=== PATIENT | female | born 1945 | race Caucasian/White ===

== ENCOUNTER 2019-11-07 09:26 | Emergency (ER) | payer MEDICARE ==
[2019-11-07] MEDS ORDERED: SODIUM CHLORIDE 0.9% 500 ML 500 ML IV STA (09:48)
[2019-11-07 09:49] LABS: Glucose,Whole Blood 87 mg/dL (75-99)
--- NOTE | 2019-11-07 09:56 | ED ---
General Adult HPI - General Chief complaint: Neuro Symptoms/Deficit Stated complaint: poss stroke Time Seen by Provider: 11/07/19 09:26 Source: patient, RN notes reviewed, old records reviewed Mode of arrival: wheelchair Limitations: no limitations - History of Present Illness Initial comments: This is a 74-year-old female who presents to the emergency department complaining of left facial droop. According to the family member the patient was last seen normal at 10 PM last night. Patient's family members stated this morning she had slurred speech as well as left-sided facial droop and now her speech and appears to be back to its baseline. Patient has had 2 previous strokes in the past. Patient denies any headache patient denies any recent il lness. Patient denies any fever chills per patient denies chest pain palpitations difficulty breathing shortness of breath. Patient denies any weakness in her extremities. Patient denies any abdominal pain. Patient denies any recent nausea vomiting diarrhea. - Related Data Home Medications Medication Instructions Recorded Confirmed Enalapril [Vasotec] 10 mg PO DAILY 07/07/14 11/07/19 Aspirin EC [Ecotrin Low Dose] 81 mg PO DAILY 11/07/19 11/07/19 Aspirin EC [Ecotrin] 325 mg PO ONCE PRN 11/07/19 11/07/19 Atorvastatin [Lipitor] 40 mg PO HS 11/07/19 11/07/19 Chlorthalidone [Hygroton] 25 mg PO DAILY PRN 11/07/19 11/07/19 Pantoprazole [Protonix] 40 mg PO HS 11/07/19 11/07/19 Ubidecarenone [Co Q-10] 100 mg PO DAILY 11/07/19 11/07/19 amLODIPine [Norvasc] 5 mg PO DAILY 11/07/19 11/07/19 Allergies Allergy/AdvReac Type Severity Reaction Status Date / Time adhesive AdvReac Unknown Verified 11/07/19 10:25 Review of Systems ROS Statement: Those systems with pertinent positive or pertinent negative responses have been documented in the HPI. ROS Other: All systems not noted in ROS Statement are negative. Past Medical History Past Medical History: Coronary Artery Disease (CAD), Cancer, GERD/Reflux, Hyperlipidemia, Hypertension Additional Past Medical History / Comment(s): CLL DX A YEAR AGO MAY, KIDNEY STONES, ARTHRITIS, FACIAL REDDNESS ? CAUSE History of Any Multi-Drug Resistant Organisms: None Reported Past Surgical History: Bladder Surgery, Cholecystectomy, Heart Catheterization With Stent, Hysterectomy Additional Past Surgical History / Comment(s): BLADDER SUSPENSION, Past Anesthesia/Blood Transfusion Reactions: No Reported Reaction Date of Last Stent Placement:: 2005 Past Psychological History: No Psychological Hx Reported Smoking Status: Current every day smoker - Past Family History Father Family Medical History: Dementia Additional Family Medical History / Comment(s): AGE 86 , ULCER Mother Family Medical History: Hypertension Additional Family Medical History / Comment(s): VASCULAR DX, BRAIN TUMOR, AGE 83 General Exam - General Exam Comments Initial Comments: GENERAL: Patient is well-developed and well-nourished. Patient is nontoxic and well- hydrated and is in mild distress. ENT: Neck is soft and supple. No significant lymphadenopathy is noted. Oropharynx is clear. Moist mucous membranes. Neck has full range of motion without eliciting any pain. EYES: The sclera were anicteric and conjunctiva were pink and moist. Extraocular movements were intact and pupils were equal round and reactive to light. Eyelids were unremarkable. PULMONARY: Unlabored respirations. Good breath sounds bilaterally. No audible rales rhonchi or wheezing was noted. CARDIOVASCULAR: There is a regular rate and rhythm without any murmurs gallops or rubs. ABDOMEN: Soft and nontender with normal bowel sounds. No palpable organomegaly was noted. There is no palpable pulsatile mass. SKIN: Skin is clear with no lesions or rashes and otherwise unremarkable. NEUROLOGIC: Patient is alert and oriented x3. Patient has left-sided facial droop. Motor and sensory are also intact. Normal speech, volume and content. Symmetrical smile. Cerebellar exam grossly intact. MUSCULOSKELETAL: Normal extremities with adequate strength and full range of motion. No lower extremity swelling or edema. No calf tenderness. LYMPHATICS: No significant lymphadenopathy is noted PSYCHIATRIC: Normal psychiatric evaluation. Limitations: no limitations Course Vital Signs 11/07/19 11/07/19 11/07/19 09:29 09:45 10:00 Temperature 97.9 F Pulse Rate 66 Respiratory 20 20 20 Rate Blood Pressure 193/84 186/88 139/97 O2 Sat by Pulse 100 99 99 Oximetry 11/07/19 11/07/19 10:15 10:30 Temperature Pulse Rate Respiratory 20 20 Rate Blood Pressure 160/70 175/90 O2 Sat by Pulse 99 99 Oximetry Medical Decision Making - Medical Decision Making This was a democrat one code stroke EKG shows sinus rhythm with occasional PAC at 71 bpm [place] interval is 132 QRS is 90 QT interval is 408 QTC is 443. I spoke with Dr. Hernandez and he did not want any TPA or intervention after having reviewed the CT and CTA. He Stated both showed no abnormalities I spoke with some physicians he agreed to admit the patient admitted the patient I wrote admitting orders - Lab Data Result diagrams: 11/07/19 10:05 11/07/19 10:05 Lab Results 11/07/19 11/07/19 11/07/19 Range/Units 09:37 10:05 10:05 WBC 21.7 H (3.8-10.6) k/uL RBC 5.05 (3.80-5.40) m/uL Hgb 14.8 (11.4-16.0) gm/dL Hct 45.7 (34.0-46.0) % MCV 90.4 (80.0-100.0) fL MCH 29.3 (25.0-35.0) pg MCHC 32.4 (31.0-37.0) g/dL RDW 13.1 (11.5-15.5) % Plt Count 206 (150-450) k/uL Sodium 142 (137-145) mmol/L Potassium 4.4 (3.5-5.1) mmol/L Chloride 109 H (98-107) mmol/L Carbon Dioxide 24 (22-30) mmol/L Anion Gap 9 mmol/L BUN 12 (7-17) mg/dL Creatinine 0.69 (0.52-1.04) mg/dL Est GFR (CKD-EPI)AfAm >90 (>60 ml/min/1.73 sqM) Est GFR (CKD-EPI)NonAf 87 (>60 ml/min/1.73 sqM) Glucose 90 (74-99) mg/dL POC Glucose (mg/dL) 87 (75-99) mg/dL POC Glu [employer]EX[employer] Lavinia Ackerman Calcium 10.1 (8.4-10.2) mg/dL Total Bilirubin 0.7 (0.2-1.3) mg/dL AST 27 (14-36) U/L ALT 15 (4-34) U/L Alkaline Phosphatase 148 H (38-126) U/L Total Protein 7.5 (6.3-8.2) g/dL Albumin 4.6 (3.5-5.0) g/dL Critical Care Time Critical Care Time: Yes Total Critical Care Time: 30 Disposition Clinical Impression: Cerebrovascular accident (CVA) Disposition: ADMITTED IP TO THIS HOSP Referrals: Roseann Zapata MD [Primary Care Provider] - 1-2 days Time of Disposition: 10:35
[2019-11-07 10:16] LABS: HCT 45.7 % (34.0-46.0); HGB 14.8 gm/dL (11.4-16.0); MCH 29.3 pg (25.0-35.0); MCHC 32.4 g/dL (31.0-37.0); MCV 90.4 fL (80.0-100.0); Mean Platelet Volume 8.7; Platelet Count 206 k/uL (150-450); RBC 5.05 m/uL (3.80-5.40); RDW 13.1 % (11.5-15.5); WBC 21.7 k/uL (3.8-10.6)
[2019-11-07 10:22] LABS: ALT 15 U/L (4-34); AST 27 U/L (14-36); African American GFR (CKD) >90 (>60 ml/min/1.73 sqM); Albumin 4.6 g/dL (3.5-5.0); Alkaline Phosphatase 148 U/L (38-126); Anion Gap 9 mmol/L; Blood Urea Nitrogen 12 mg/dL (7-17); Calcium 10.1 mg/dL (8.4-10.2); Carbon Dioxide 24 mmol/L (22-30); Chloride 109 mmol/L (98-107); Glucose 90 mg/dL (74-99); Non-African American GFR(CKD) 87 (>60 ml/min/1.73 sqM); Potassium 4.4 mmol/L (3.5-5.1); Sodium 142 mmol/L (137-145); Total Bilirubin 0.7 mg/dL (0.2-1.3); Total Protein 7.5 g/dL (6.3-8.2)
--- NOTE | 2019-11-07 10:23 | CT ---
EXAMINATION TYPE: CT brain wo con for TPA DATE OF EXAM: 11/07/2019 COMPARISON: 07/07/2014 HISTORY: CODE STROKE CT DLP: 1424.[address] of the brain was performed. The ventricles, basal cisterns and sulci overlying the cerebral convexities demonstrate mild enlargem ent. Remote insults right frontal and left frontal lobes. There is no evidence for intracranial hemorrhage or sulcal effacement. There is decreased attenuation about the periventricular white matter and deep white matter of both c erebral hemispheres, compatible with chronic small vessel ischemia. Differential diagnosis does inclu de demyelination. No mass effects are seen.No midline shift. Osseous calvarium is intact. If symptoms persist consider MRI. IMPRESSION: 1. Age related atrophic and chronic small vessel ischemic change without acute intracranial process s een at this time.
[2019-11-07 10:26] VITALS: TEMP 97.9
[2019-11-07 10:33] LABS: INR 0.9 (<1.2); Prothrombin Time 9.4 sec (9.0-12.0)
[2019-11-07] MEDS ORDERED: ASPIRIN 325 MG TAB PO STA (10:36)
[2019-11-07 10:37] LABS: Creatine Kinase 64 U/L (30-135)
[2019-11-07 10:48] LABS: Partial Thromboplastin Time 19.5 sec (22.0-30.0)
[2019-11-07 10:51] LABS: Creatine Kinase MB 0.7 ng/mL (0.0-2.4); Troponin I <0.012 ng/mL (0.000-0.034)
--- NOTE | 2019-11-07 10:52 | XR ---
EXAMINATION TYPE: XR chest 2V DATE OF EXAM: 11/07/2019 COMPARISON: 07/07/2014 HISTORY: Altered mental status TECHNIQUE: Frontal and lateral views of the chest are obtained. FINDINGS: Chronic interstitial prominence is unchanged from 2013. There is no focal air space opacit y, pleural effusion, or pneumothorax seen. The cardiac silhouette size is within normal limits. Th e osseous structures are intact. There is diffuse osseous demineralization throughout. Cholecystectom y clips are noted. Mild degenerative change of the spine. IMPRESSION: Chronic findings with no acute cardiopulmonary process.
[2019-11-07 10:58] LABS: Monocytes # (M) 0.43 k/uL (0-1.0); Neutrophils # (M) 2.17 k/uL (1.3-7.7); Neutrophils % (M) 10 %; Nucleated Red Blood Cells 0 /100 WBC (0-0); Total Cells Counted 200
[2019-11-07 10:59] LABS: Anisocytosis (M) Present; Poikilocytosis (M) Present
[2019-11-07] MEDS ORDERED: ASPIRIN 81 MG PO STA (11:15)
--- NOTE | 2019-11-07 11:34 | CT ---
EXAMINATION TYPE: CT angio head neck DATE OF EXAM: 11/07/2019 HISTORY: Neuro deficit with stroke suspected COMPARISON: 11/07/2019 CT DLP: 1424.4 mGycm. Automated Exposure Control for Dose Reduction was Utilized. TECHNIQUE: CTA scan of the neck is performed with IV Contrast, patient injected with 100 mL of Isovu e 370, axial images are obtained, coronal and sagittal reformatted images are reviewed. Three-D recon structed images are created on an independent workstation and reviewed. FINDINGS: Carotid/Vascular Structures: There is a conventional three-vessel branch pattern of the aortic arch w ith mild calcific atherosclerosis of the ostia of the left subclavian artery. The common carotid génesis reza are patent bilaterally and unremarkable. The vertebral arteries are also patent and unremarkable with dominance on the left. There is stenosis of the left internal carotid artery at its origin from calcific and noncalcific ath eromatous plaquing extending approximately 1.2 cm. This is estimated to be approximately 60% overall. The proximal or distal caliber of the internal carotid artery cannot be measured as this involves th e entire vertical portion. On the right there is focal approximately 50% stenosis at the origin of th e internal carotid artery extending a distance of only 4 mm. The remainder of the internal carotid ar pamela on the right demonstrates only minimal nonhemodynamically significant atheromatous plaquing. Mild nonhemodynamically significant atheromatous plaquing is seen of the cavernous and supraclinoid p ortions of the internal carotid arteries. There is opacification of the posterior cerebral arteries. The proximal middle cerebral arteries are opacified and unremarkable as are the anterior cerebral art eries. No sizable aneurysm. Other: Visualized portions of the brain are discussed on the CT brain dictation of the same date. Mod erate degenerative changes of the spine. Mild paraseptal emphysema with apical blebs. Multifocal subs egmental atelectasis. [place] artifact from dental fillings. IMPRESSION: 1. Approximately 60% stenosis of the left internal carotid artery beginning at its origin and extendi ng over 1.2 cm in length. 2. Approximately 50% stenosis measuring only 4 mm in length at the origin of the right internal carot id artery. 3. No evidence of intracranial aneurysm or large vessel arterial occlusion.
--- NOTE | 2019-11-07 14:35 | P.HPIM ---
History of Present Illness H&P Date: 11/07/19 Chief Complaint: facial droop This document will serve as H&P and also discharge summary. 74-year-old female with PMH of CLL, TIA, hypertension, CAD with stent placement presents the ED for facial droop. Patient reports waking up this morning, noticed that she had a facial droop along with slurred speech. patient reported no issues when she went to sleep that night. She denies any weakness in her upper or lower extremities. She denies any numbness or tingling in her face, upper or lower extremities. She denies any visual disturbances. She denies any difficulty swallowing. She does report some dysarthria. Of note, patient reports undergoing dental procedure one year ago that led to taste disturbances. She has also been experiencing tinnitus over the past year. Patient reported suffering from shingles last year. She denies any headache, lower extremity ed raúl, nausea or vomiting, fever or chills, cough, chest pain, shortness of breath, palpitations, changes in urination or bowel habits. No changes in appetite or weight. In the ED, she underwent extensive evaluation. Vital signs were stable. CBC showed leukocytosis of 21.7. Coagulation panel showed PTT of 19.5. CMP showed chloride of 109, alkaline phosphatase of 148. Troponin was less than 0.012, EKG showing sinus rhythm with PACs. CT brain negative for intracranial process. CTA head and neck shows 60% stenosis of the internal carotid artery left, 50% stenosis of the right internal carotid. Chest x-ray showed chronic findings. Review of Systems Pertinent positives and negatives as discussed in HPI, a complete review of systems was performed and all other systems are negative. Past Medical History Past Medical History: Coronary Artery Disease (CAD), Cancer, CVA/TIA, GERD/Reflux, Hyperlipidemia, Hypertension, Osteoarthritis (OA) Additional Past Medical History / Comment(s): TIAs, CLL diagnosed in 2012, nephrolithiasis with surgical removal, arthritis mostly in bilateral hands History of Any Multi-Drug Resistant Organisms: None Reported Past Surgical History: Bladder Surgery, Cholecystectomy, Heart Catheterization, Heart Catheterization With Stent, Hysterectomy Additional Past Surgical History / Comment(s): Bladder suspension, cystoscopy/removal of kidney stones, colonoscopy Past Anesthesia/Blood Transfusion Reactions: No Reported Reaction Date of Last Stent Placement:: 2005 Smoking Status: Current every day smoker - Past Family History Father Family Medical History: Dementia Additional Family Medical History / Comment(s): AGE 86 , ULCER Mother Family Medical History: Hypertension, Vascular Disorder Additional Family Medical History / Comment(s): VASCULAR DX, BRAIN TUMOR, AGE 83 Medications and Allergies Home Medications Medication Instructions Recorded Confirmed Type Enalapril [Vasotec] 10 mg PO DAILY 07/07/14 11/07/19 History Aspirin EC [Ecotrin Low Dose] 81 mg PO DAILY 11/07/19 11/07/19 History Atorvastatin [Lipitor] 40 mg PO HS 11/07/19 11/07/19 History Chlorthalidone [Hygroton] 25 mg PO DAILY PRN 11/07/19 11/07/19 History Pantoprazole [Protonix] 40 mg PO HS 11/07/19 11/07/19 History Ubidecarenone [Co Q-10] 100 mg PO DAILY 11/07/19 11/07/19 History amLODIPine [Norvasc] 5 mg PO DAILY 11/07/19 11/07/19 History predniSONE 60 mg PO DAILY #21 tab 11/07/19 Rx valACYclovir HCL [Valtrex] 1,000 mg PO Q8HR #21 tab 11/07/19 Rx Allergies Allergy/AdvReac Type Severity Reaction Status Date / Time adhesive AdvReac Unknown Verified 11/07/19 10:25 Physical Exam Vitals: Vital Signs Temp Pulse Resp BP Pulse Ox 11/07/19 13:00 63 18 150/73 97 11/07/19 12:00 18 124/62 100 11/07/19 11:00 72 20 126/73 100 11/07/19 10:45 72 20 159/70 100 11/07/19 10:30 20 175/90 99 11/07/19 10:15 20 160/70 99 11/07/19 10:00 20 139/97 99 11/07/19 09:45 20 186/88 99 11/07/19 09:29 97.9 F 66 20 193/84 100 Intake and Output 11/06/19 11/07/19 11/07/19 22:59 06:59 14:59 Other: Weight 60.781 kg General: [non toxic], [no distress], [appears at stated age] Derm: [warm], [dry] Head: [atraumatic], [normocephalic], [symmetric] Eyes: [EOMI], [no lid lag], [anicteric sclera] Mouth: [no lip lesion], [mucus membranes moist] Cardiovascular: [S1S2 reg], [no murmur], [positive DP pulse bilateral], Lungs: [CTA bilateral], [no rhonchi, no rales] , [no accessory muscle use] Abdominal: [soft], [ nontender to palpation], [no guarding], [no appreciable organomegaly] Ext: [no gross muscle atrophy], [no edema], [no contractures] Neuro: [ CN II-XI grossly intact except CN 7], [strength 5 out of 5 in all 4 extremities along with sensation intact to touch.] Psych: [Alert], [oriented], [appropriate affect] Patient is unable to fully close her eyes on the left side. She is unable to wrinkle her forehead on the left side. She does have facial droop on the left side. Results CBC & Chem 7: 11/07/19 10:05 11/07/19 10:05 Labs: Abnormal Lab Results - Last 24 Hours (Table) 11/07/19 11/07/19 11/07/19 Range/Units 10:05 10:05 10:05 WBC 21.7 H (3.8-10.6) k/uL Lymphocytes # (Manual) 19.10 H (1.0-4.8) k/uL APTT 19.5 L (22.0-30.0) sec Chloride 109 H (98-107) mmol/L Alkaline Phosphatase 148 H (38-126) U/L Thrombosis Risk Factor Assmnt - Choose All That Apply Any of the Below Risk Factors Present?: Yes Other Risk Factors: Yes Each Risk Factor Represents 2 Points: Age 61-74 years, Malignancy Other congenital or acquired thrombophilia - If yes, enter type in comment: No Each Risk Factor Represents 5 Points: Stroke (< 1 month) Thrombosis Risk Factor Assessment Total Risk Factor Score: 9 Thrombosis Risk Factor Assessment Level: High Risk Assessment and Plan Assessment: Ricks's palsy Carotid stenosis with history of CAD and dyslipidemia Leukocytosis with history of CLL History TIA Hypertension CT brain shows no acute findings. CTA head and neck shows 50 and 60% stenosis of the internal carotids. Physical exam consistent with Ricks's palsy. Plans: Neurology consulted, evaluated patient, recommends no CVA workup and for discharge home on prednisone and Valtrex. CTA head and neck shows 60% stenosis left internal carotid, 50% stenosis right internal carotid. Plans: Follow-up vascular surgery in the outpatient setting. Leukocytosis of 21.7. Also has history of CLL. Patient afebrile with no signs of infection. Plans: Continue to monitor in the outpatient setting. Plans: Continue aspirin and Lipitor. BP 133/63. Plans: Continue enalapril, chlorthalidone, amlodipine. Monitor vital s, justification as necessary. [Patient will be discharged home on prednisone and Valtrex. She has been cleared by neurology for discharge. She should follow-up with her PCP within 1-2 days of discharge. Advised of warning symptoms of stroke and when to present back to the hospital. Patient verbalized understanding of the plan.]
[2019-11-07 15:15] VITALS: BP 159/79; PULSE 58
[2019-11-07 15:26] VITALS: RESP 20
--- NOTE | 2019-11-07 22:23 | P.CNNES ---
History of Present Illness Consult date: 11/07/19 Reason for Consult: TIA/Stroke Chief complaint: L facial droop History of Present Illness: HISTORY OF PRESENT ILLNESS: Thank you for allowing me to evaluate Ms. Alvina Pereyra. Ms. Pereyra is a 74 year-old woman with PMHx of TIA, coronary artery disease, GERD, hyperlipidemia, hypertension, CLL, arthritis, presenting to [facility] for acute onset L facial droop. Patient states that she woke up with it this morning. Denies headache, nausea, vomiting, dizziness, double/blurry vision, weakness, numbness, tingling, recent sickness. Patient reports having had 2 episdoes of TIA, once about 2 years ago that caused some slurred speech and another about 4 years ago that caused L-sided numbness. Patient is compliant with her meds and taking ASA and statin. Patient reports she smokes at least 1ppd, and she's been smoking for almost 50 years. reports that she's having some slurred speech since this morning which has not changed in severity. PAST MEDICAL HISTORY: TIA, coronary artery disease, GERD, hyperlipidemia, hypertension, CLL, arthritis PAST SURGICAL HISTORY: cholecystectomy, heart catheterization with stent, hysterectomy, bladder suspension HOME MEDICATIONS: enalapril, aspirin, atorvastatin, chlorthalidone, pantoprazole, co-Q10, amlodipine ALLERGIES: adhesive SOCIAL HISTORY: current every day smoker FAMILY HISTORY: father had dementia. Mother had hypertension, vascular disease, brain tumor REVIEW OF SYSTEMS: The 14 systems are reviewed and no additional points are identified compared to the review of systems documented history and physical PHYSICAL EXAMINATION: VITAL SIGNS: T 97.9 HR 66 RR 20 BP 193/84 O2 sat 100% on RA GEN.: NAD, pleasant and cooperative HEENT: NCAT, sclera without icterus NECK: Supple SKIN AND EXTREMITIES: Warm to touch, no edema NEURO: MENTAL STATUS: Patient alert and oriented to self, place, time. Able to name the current president. Speech fluent, able to name and repeat, following all commands readily. No right and left disorientation, neglect. CRANIAL NERVES II THROUGH XII: II: Pupils are equal and reactive to light symmetrically. No afferent pupillary defect. Visual sher are intact. III, IV, : No ptosis. Extraocular movements full. No nystagmus. V: Facial sensation intact from V1-3. VII. Left upper and lower face weakness. Difficulty closing her L eye and obvious L facial droop. Patient also with difficult making a frowning face. Decreased sensation to taste in both anterior 2/3 of the tongue. No apparent hyperacusis in her L ear. VIII: Hearing intact to finger rub bilaterally. IX, X: Symmetric palate elevation. XI: Shoulder shrug intact. XII: Tongue midline without fasciculation or atrophy. MOTOR: Normal bulk/tone. No pronator drift or tremor. Strength is 5/5 throughout all 4 extremities SENSORY: Intact to light touch in all 4 extremities. Romberg is negative. REFLEXES: 2+ throughout. Toes are downgoing. COORDINATION: Finger to nose intact. No dysmetria. GAIT: Narrow-based and stable. Able to toe/heel/tandem walk DIAGNOSTIC TESTING: LABORATORY: WBC 21.7 hemoglobin 14.8 platelet 206 sodium 142 potassium 4.4 chloride 109 bicarb 24 BUN 12 creatinine 0.69 glucose 90 AST 27 ALT 15 AlkPhos 148 troponin <0.012 IMAGING: CT brain without contrast 11/07/2019: age-related atrophic and chronic small vessel ischemic change without acute intr acranial process seen at this time CTA head and neck with contrast 11/07/2019: approximately 60% stenosis of the left ICA beginning at its origin extending over 1.2 cm in length. Approximately 50% stenosis measuring only 4 mm in length at the origin of the right ICA. No evidence of intracranial aneurysm or large vessel arterial occlusion. ASSESSMENT/RECOMMENDATIONS: 74 year-old woman with PMHx of TIA, coronary artery disease, GERD, hyperlipidemia, hypertension, CLL, arthritis, presenting to [facility] for acute onset L facial droop. 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 Patient reports episodes of TIA along with other stroke risk factors including current everyday smoking. Discussed with patient about stroke prevention guidelines. Medication compliance, hypertension/diabetes control, lifestyle changes including no smoking, drinking in moderation, losing weight, exercising, eating healthier. Discussed ED precautions: return to ED if having severe headache, nausea, vomiting, vision deficits, speech difficulty, facial asymm etry, weakness, numbness or tingling. Recommend steroids and antivirals for 7 days as symptoms began this morning. Patient needs to follow up with neurologist as outpatient 3-4 weeks of discharge. Continue taking ASA and statin. Neurology will sign off at this time. Past Medical History Past Medical History: Coronary Artery Disease (CAD), Cancer, GERD/Reflux, Hyperlipidemia, Hypertension Additional Past Medical History / Comment(s): CLL DX A YEAR AGO MAY, KIDNEY STONES, ARTHRITIS, FACIAL REDDNESS ? CAUSE History of Any Multi-Drug Resistant Organisms: None Reported Past Surgical History: Bladder Surgery, Cholecystectomy, Heart Catheterization With Stent, Hysterectomy Additional Past Surgical History / Comment(s): BLADDER SUSPENSION, Past Anesthesia/Blood Transfusion Reactions: No Reported Reaction Date of Last Stent Placement:: 2005 Past Psychological History: No Psychological Hx Reported Smoking Status: Current every day smoker - Past Family History Father Family Medical History: Dementia Additional Family Medical History / Comment(s): AGE 86 , ULCER Mother Family Medical History: Hypertension Additional Family Medical History / Comment(s): VASCULAR DX, BRAIN TUMOR, AGE 83 Medications and Allergies Home Medications Medication Instructions Recorded Confirmed Type Enalapril [Vasotec] 10 mg PO DAILY 07/07/14 11/07/19 History Aspirin EC [Ecotrin Low Dose] 81 mg PO DAILY 11/07/19 11/07/19 History Atorvastatin [Lipitor] 40 mg PO HS 11/07/19 11/07/19 History Chlorthalidone [Hygroton] 25 mg PO DAILY PRN 11/07/19 11/07/19 History Pantoprazole [Protonix] 40 mg PO HS 11/07/19 11/07/19 History Ubidecarenone [Co Q-10] 100 mg PO DAILY 11/07/19 11/07/19 History amLODIPine [Norvasc] 5 mg PO DAILY 11/07/19 11/07/19 History predniSONE 60 mg PO DAILY #21 tab 11/07/19 Rx valACYclovir HCL [Valtrex] 1,000 mg PO Q8HR #21 tab 11/07/19 Rx Allergies Allergy/AdvReac Type Severity Reaction Status Date / Time adhesive AdvReac Unknown Verified 11/07/19 10:25 Physical Examination - Vital Signs Vital Signs: Vital Signs Temp Pulse Resp BP Pulse Ox 11/07/19 11:00 72 20 126/73 100 11/07/19 10:45 72 20 159/70 100 11/07/19 10:30 20 175/90 99 11/07/19 10:15 20 160/70 99 11/07/19 10:00 20 139/97 99 11/07/19 09:45 20 186/88 99 11/07/19 09:29 97.9 F 66 20 193/84 100 Intake and Output 11/06/19 11/07/19 11/07/19 22:59 06:59 14:59 Other: Weight 60.781 kg Results - Laboratory Findings CBC and BMP: 11/07/19 10:05 11/07/19 10:05 Abnormal Lab Findings: Abnormal Labs 11/07/19 11/07/19 11/07/19 10:05 10:05 10:05 WBC 21.7 H Lymphocytes # (Manual) 19.10 H APTT 19.5 L Chloride 109 H Alkaline Phosphatase 148 H
[2019-11-08] MEDS ORDERED: ASPIRIN 325 MG TAB PO SCH (09:00)
== END 2019-11-07 15:29 | disposition home or self-care (01) ==
LOC: EC 09:26 → 3SCARD 10:36 → UNDOADMIN 10:36 → UNDODISIN 15:23 → EC 15:29
DX: I63.9 Cerebral infarction, unspecified (principal); I25.10 Atherosclerotic heart disease of native coronary artery without angina pectoris; K21.9 Gastro-esophageal reflux disease without esophagitis; E78.5 Hyperlipidemia, unspecified; I10 Essential (primary) hypertension; Z90.49 Acquired absence of other specified parts of digestive tract; Z95.5 Presence of coronary angioplasty implant and graft; F17.200 Nicotine dependence, unspecified, uncomplicated; Z79.82 Long term (current) use of aspirin; Z79.899 Other long term (current) drug therapy; Z91.048 Other nonmedicinal substance allergy status
CPT/HCPCS: 36415; 93005; 80053; 82550; 82553; 84484; 85025; 85610; 85730; 71046; 70496; 70450; 70498; 99291; Q9967